=== PATIENT | male | born 1980 | race Two or more races ===

== ENCOUNTER 2017-07-30 18:32 | Emergency (ER) | payer SELFPAY ==
--- NOTE | 2017-07-30 18:52 | CPEKG ---
Heart Rate: 96 RR Interval: 625 P-R Interval: 148 QRSD Interval: 102 QT Interval: 364 QTC Interval: 460 P Carlisle: 39 QRS Carlisle: 41 T Wave Carlisle: 10 EKG Severity - BORDERLINE ECG - EKG Impression: SINUS RHYTHM EKG Impression: BORDERLINE T WAVE ABNORMALITIES Electronically Signed By: Jarod Ocasio 01-Aug-2017 07:37:12
--- NOTE | 2017-07-30 18:53 | EDPHY ---
H & P Stated Complaint: pt had CP after energy drink 1 hour ago, not feeling well Time Seen by Provider: 07/30/17 18:48 HPI/ROS: CHIEF COMPLAINT: Shaky, lightheaded HISTORY OF PRESENT ILLNESS: The patient is a 36-year-old healthy man who comes to the emergency depart with his and family. He states that he chugged a monster energy drink about an hour ago and about 30 min afterwards began feeling shaky and lightheaded. He denies chest pain. He denies shortness of breath. He states that he did this because he was feeling tired. No recent fevers or illness. No vomiting. No diarrhea. REVIEW OF SYSTEMS: Constitutional: denies: chills, fever, recent illness, recent injury EENTM: denies: blurred vision, double vision, nose congestion Respiratory: denies: cough, shortness of breath Cardiac: See HPI denies: chest pain, irregular heart rate, lightheadedness, palpitations Gastrointestinal/Abdominal: denies: abdominal pain, diarrhea, nausea, vomiting, blood streaked stools Genitourinary: denies: dysuria, frequency, hematuria, pain Musculoskeletal: denies: joint pain, muscle pain Skin: denies: lesions, rash, jaundice, bruising Neurological: See HPI denies: headache, numbness, paresthesia, tingling, dizziness, weakness Hematologic/Lymphatic: denies: blood clots, easy bleeding, easy bruising Immunologic/allergic: denies: HIV/AIDS, transplant EXAM: GENERAL: Well-appearing, well-nourished and in no acute distress. HEAD: Atraumatic, normocephalic. EYES: Pupils equal round and reactive to light, extraocular movements intact, sclera anicteric, conjunctiva are normal. ENT: TMs normal, nares patent, oropharynx clear without exudates. Moist mucous membranes. NECK: Normal range of motion, supple without lymphadenopathy or JVD. LUNGS: Breath sounds clear to auscultation bilaterally and equal. No wheezes rales or rhonchi. HEART: Regular rate and rhythm without murmurs, rubs or gallops. ABDOMEN: Soft, nontender, normoactive bowel sounds. No guarding, no rebound. No masses appreciated. BACK: No CVA tenderness, no spinal tenderness, step-offs or deformities EXTREMITIES: Normal range of motion, no pitting or edema. No clubbing or cyanosis. NEUROLOGICAL: Cranial nerves II through XII grossly intact. Normal speech, normal gait. 5/5 strength, normal movement in all extremities, normal sensation PSYCH: Normal mood, normal affect. SKIN: Warm, dry, normal turgor, no visible rashes or lesions. Source: Patient Exam Limitations: No limitations - Personal History Current Tetanus/Diphtheria Vaccine: Unsure Current Tetanus Diphtheria and Acellular Pertussis (TDAP): Unsure - Medical/Surgical History Hx Asthma: No Hx Chronic Respiratory Disease: No Hx Diabetes: No Hx Cardiac Disease: No Hx Renal Disease: No Hx Cirrhosis: No Hx Alcoholism: No Hx HIV/AIDS: No Hx Splenectomy or Spleen Trauma: No - Family History Significant Family History: No pertinent family hx - Social History Smoking Status: Never smoked Alcohol Use: Sober Drug Use: None Constitutional: Initial Vital Signs Temperature (C) 36.9 C 07/30/17 18:40 Heart Rate 90 07/30/17 18:40 Respiratory Rate 16 07/30/17 18:40 Blood Pressure 116/83 H 07/30/17 18:40 O2 Sat (%) 95 07/30/17 18:40 O2 Delivery Mode Room Air Allergies/Adverse Reactions: No Known Allergies Allergy (Unverified 07/30/17 18:44) Home Medications: Medication Instructions Recorded None 03/26/09 Medical Decision Making - Diagnostics EKG Interpretation: An EKG obtained and was read and documented in trace view. Please see trace view for full reading and report. Sinus rhythm, no acute ischemia ED Course/Re-evaluation: 8:15 p.m. the patient's symptoms have resolved. He would like to go home. His family is here and is eager to take him. They declined further workup or testing. We discussed more judicious caffeine use. Differential Diagnosis: Partial list of the Differential diagnosis considered include but were not limited to; caffeine overdose, stimulant abuse and although unlikely based on the history and physical exam, I also considered infection, arrhythmia, infection, acute coronary disease, PE. I discussed these differential diagnoses and the plan with the patient as well as the usual and expected course. The patient understands that the diagnosis is provisional and that in medicine we are not always correct and that further workup is often warranted. Usual and customary warnings were given. All of the patient's questions were answered. The patient was instructed to return to the emergency department should the symptoms at all worsen or return, otherwise to followup with the physician as we discussed. Departure - Departure Disposition: Home, Routine, Self-Care Clinical Impression: Caffeine overdose Qualifiers: Encounter type: initial encounter Injury intent: accidental or unintentional Qualified Code(s): T43.611A - Poisoning by caffeine, accidental (unintentional) , initial encounter Condition: Fair Instructions: Caffeine Use (ED) Referrals: NONE *PRIMARY CARE P,. [Primary Care Provider] - As per Instructions
[2017-07-30 19:59] VITALS: BP 123/80
== END 2017-07-30 20:29 | disposition home or self-care (01) ==
DX: T43.611A Poisoning by caffeine, accidental (unintentional), initial encounter (principal)

== ENCOUNTER 2018-04-11 16:01 | Emergency (ER) | payer OTHER ==
--- NOTE | 2018-04-11 16:09 | EDPHY ---
H & P Time Seen by Provider: 04/11/18 16:09 - Medical/Surgical History Hx Asthma: No Hx Chronic Respiratory Disease: No Hx Diabetes: No Hx Cardiac Disease: No Hx Renal Disease: No Hx Cirrhosis: No Hx Alcoholism: No Hx HIV/AIDS: No Hx Splenectomy or Spleen Trauma: No - Social History Smoking Status: Never smoked Allergies/Adverse Reactions: No Known Allergies Allergy (Unverified 07/30/17 18:44) Home Medications: Medication Instructions Recorded None 03/26/09 Medical Decision Making ED Course/Re-evaluation: CHIEF COMPLAINT: HISTORY OF PRESENT ILLNESS: must have 4 elements: Location, Quality, Severity , Duration, Timing, Context, Modifying Factors, Associated Signs and Symptoms REVIEW OF SYSTEMS: A comprehensive 10 system review of systems is otherwise negative aside from elements mentioned in the history of present illness and medical decision making. PHYSICAL EXAM: HR, BP, O2 Sat, RR. Temp noted General Appearance: Alert, well hydrated, appropriate, and non-toxic appearing. Head: Atraumatic without scalp tenderness or obvious injury Eyes: Pupils equal, round, reactive to light and accommodation, EOMI, no trauma , no injection. Ears: Clear bilaterally, no perforation, normal landmarks Nose: Atraumatic, no rhinorrhea, clear. Throat: There is no erythema or exudates, no lesions, normal tonsils, mucus membranes moist. Neck: Supple, 2+ carotid upstroke, nontender, no lymphadenopathy. Respiratory: No retractions, no distress, no wheezes, and no accessory muscle use. Lungs are clear to auscultation bilaterally. Cardiovascular: Regular rate and rhythm, no murmurs, rubs, or gallops. Bilateral carotid, radial, dorsalis pedis, and posterior tibial pulses intact. Good capillary refill all extremities. Gastrointestinal: Abdomen is soft, nontender, non-distended, no masses, no rebound, no guarding, no peritoneal signs. Musculoskeletal: Normal active ROM of all extremities, atraumatic. Neurological: Alert, appropriate, and interactive. The patient has normal DTRs and non-focal cranial nerves, motor, sensory, and cerebellar exam. Skin: No rashes, good turgor, no nodules on palpation. Past medical history: Past surgical history: Family history: Social history: DIAGNOSTICS/PROCEDURES/CRITICAL CARE TIME: DIFFERENTIAL DIAGNOSIS: MEDICAL DECISION MAKING: Departure - Departure Referrals: Patient,NotPresent [Primary Care Provider] - As per Instructions
[2018-04-11] MEDS ORDERED: TDAP ADULT 0.5 ML INJ (BOOSTRIX) IM ONE (16:13)
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
[2018-04-11 17:28] VITALS: BP 129/81
== END 2018-04-11 17:48 | disposition home or self-care (01) ==
LOC: EDUNIT#
DX: S60.511A Abrasion of right hand, initial encounter (principal); S09.90XA Unspecified injury of head, initial encounter; Z23 Encounter for immunization; V49.49XA Driver injured in collision with other motor vehicles in traffic accident, initial encounter; Y92.410 Unspecified street and highway as the place of occurrence of the external cause; Y99.9 Unspecified external cause status; Y93.9 Activity, unspecified

== ENCOUNTER 2018-04-26 18:00 | Emergency (ER) | payer OTHER ==
--- NOTE | 2018-04-26 19:05 | CPEKG ---
Test Reason : OPEN Blood Pressure : / mmHG Vent. Rate : 082 BPM Atrial Rate : 082 BPM P-R Int : 142 ms QRS Dur : 108 ms QT Int : 365 ms P-R-T Axes : 025 037 014 degrees QTc Int : 427 ms Sinus rhythm Borderline T abnormalities, anterior leads Confirmed by Jarod Ocasio ([id number]) on 04/26/2018 7:04:23 PM Referred By: PHYSICIAN ED Confirmed By:Jarod Ocasio
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
[2018-04-26] MEDS ORDERED: IBUPROFEN 600 MG TAB PO ONE (19:29)
[2018-04-26 20:06] LABS: PLATELET COUNT 158 10^3/uL (150-400)
[2018-04-26] MEDS ORDERED: IOPAMIDOL (ISOVUE 370) 100 ML BTL IV ONE (20:47)
[2018-04-26 22:17] VITALS: BP 129/10
== END 2018-04-26 22:26 | disposition home or self-care (01) ==
DX: R07.89 Other chest pain (principal)
CPT/HCPCS: 84484-ER; Q9967